=== PATIENT | female | born 1965 | race Caucasian/White ===

== ENCOUNTER 2021-10-31 19:18 | Emergency (ER) | payer OTHER ==
[~2021-10-31] VITALS: Ht 162.6 cm; Wt 65.3 kg
[2021-10-31] MEDS ORDERED: TYLENOL (19:37)
== END 2021-10-31 23:37 | disposition home or self-care (01) ==
LOC: ER 19:18
DX: U07.1 COVID-19 (principal); Z88.0 Allergy status to penicillin; Z91.013 Allergy to seafood